=== PATIENT | female | born 1990 | race Caucasian/White ===

== ENCOUNTER 2016-07-12 00:33 | Emergency (ER) | payer SELFPAY ==
[~2016-07-12] VITALS: Ht 177.8 cm; Wt 56.0 kg
[2016-07-12 00:35] VITALS: BP 130/96; PULSE 77; RESP 14; TEMP 97.7; O2SAT 98
--- NOTE | 2016-07-12 00:49 | PD ---
HPI Chief Complaint: Lump, Cyst, Hernia Time Seen by Provider: 00:47 Travel History International Travel<30 days: No Contact w/Intl Traveler<30days: No Traveled to known affect area: No History of Present Illness HPI 26-year-old white female presents to emergency Department with complaints of tender lumps in her groin bilaterally over last 2 weeks. She denies any fever or chills. No rashes or lesions. No vaginal complaints. No dysuria or frequency. She does report shaving in the last few weeks. PFS Past Medical History Medical History: Denies Significant Hx Tetanus Vaccination: < 5 Years ?: Not LMP: 2 days ago Past Surgical History Narrative Surgical Social History Alcohol Use: No Tobacco Use: No Substance Use: No Allergies-Medications (Allergen,Severity, Reaction): Coded Allergies: Morphine (Verified Allergy, Mild, rash and itchy skin, 07/12/16) Review of Systems Except as stated in HPI: all other systems reviewed are Neg Physical Exam Narrative GENERAL: This is a well-nourished, well-developed patient, in no apparent distress. Patient's examined with Saira miller nurse present SKIN: No rashes, ecchymoses or lesions. Warm and dry. HEAD: Atraumatic. Normocephalic. EYES: PERRL, EOMI, no discharge or injection. No scleral icterus. EARS: Clear NOSE: Nasal turbinates appear normal. THROAT: Mucosa pink and moist. Airway patent. NECK: Trachea midline. supple, moves head freely. LUNGS: Clear to auscultation. CV: Regular in rhythm. ABDOMEN: Soft nontender. Patient has tender inguinal lymph nodes. No rashes or lesions. EXT: No clubbing cyanosis or edema. Data Data Last Documented VS Vital Signs Date Time Temp Pulse Resp B/P Pulse Ox O2 Delivery O2 Flow Rate FiO2 07/12/16 00:35 97.7 77 14 130/96 98 Room Air MDM Medical Decision Making Medical Screen Exam Complete: Yes Emergency Medical Condition: Yes Medical Record Reviewed: Yes Differential Diagnosis MDM: High Differential diagnoses: Abscess, folliculitis, cellulitis, lymphangitis, abrasion, contact dermatitis Narrative Course This is inguinal adenopathy Diagnosis Primary Impression: Inguinal adenopathy Patient Instructions: General Instructions Additional Instructions: Rest. Elevation. keep clean and dry. Three Advil every 6 hours. Keflex. Follow-up with a primary care doctor in one week. Return to the ER for any problems. Med/Other Pt SpecificInfo: Prescription(s) given Scripts Cephalexin (Keflex)500 Mg Gra007 Mg PO Q6H #28 CAP Prov:Yakov Flor MD 07/12/16 Disposition: 01 DISCHARGE HOME Condition: Stable Kirby Enrique Jul 12, 2016 00:48
[2016-07-12] MEDS ORDERED: CEPH-460 PO (00:53)
== END 2016-07-12 01:13 | disposition home or self-care (01) ==
LOC: NEPB 00:33
DX: R59.0 Localized enlarged lymph nodes (principal)
CPT/HCPCS: 99282